=== PATIENT | male | born 1995 | race Caucasian/White ===

== ENCOUNTER 2016-10-06 17:04 | Emergency (ER) | payer OTHER, BC ==
[~2016-10-06] VITALS: Ht 167.6 cm; Wt 68.1 kg
[2016-10-06 18:16] VITALS: BP 157/87
== END 2016-10-06 18:17 | disposition home or self-care (01) ==
LOC: EME 17:04
DX: Z04.1 Encounter for examination and observation following transport accident (principal)
CPT/HCPCS: 99281; 99283